=== PATIENT | male | born 2000 | race Caucasian/White ===

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

== ENCOUNTER 2021-10-04 21:35 | Emergency (ER) | payer MEDICAID, OTHER ==
[2021-10-04 21:55] VITALS: BP 111/72
--- NOTE | 2021-10-04 22:06 | ED Lower Extremity ---
General Chief Complaint: Laceration Stated Complaint: RIGHT KNEE CUT Nursing Triage Note: PT PRESENTS WITH LACERATION TO RIGHT KNEE. REPORTS AROUND 1830 HAVING A TARE MAN CUT HIS KNEE WHILE USING IT. AREA IS CLEAN AND DRY WITH MINIMAL BLEEDING AT THIS TIME. PT DENIES ANY PAIN Source: patient Exam Limitations: no limitations History of Present Illness Date Seen by Provider: Oct 04, 2021 Time Seen by Provider: 22:04 Initial Comments Patient is a 21-year-old male who presents ED with a laceration to the right lateral knee. This occurred around 6:00 at work. Patient Was using a horseradish grinder when the horseradish grinder slipped resulting in a laceration on the right lateral knee. Patient continue to work. Bleeding with flexion of the knee. Does have appropriate range of motion the right knee. Not up-to-date on his tetanus. Allergies and Home Medications Allergies Coded Allergies: No Known Drug Allergies (Unverified , 03/17/18) Patient Home Medication List Home Medication List Reviewed: Yes Cephalexin (Cephalexin) 500 Mg Tablet, 500 MG PO QID Prescribed by: YAQUELIN MORTON on 10/04/21 5840 Prednisolone Acetate/Pf (Prednisolone Acet 1% Eye Drop) 5 Ml Drops.susp, 2 DROPS OP Q4H Prescribed by: JENNI ROBINS on 03/18/18 0029 Tropicamide (Tropicamide) 15 Ml Drops, 2 DROPS OP Q6H Prescribed by: JENNI ROBINS on 03/18/18 0029 Review of Systems Constitutional: No chills, No diaphoresis, No malaise, No weakness EENTM: No hearing loss, No ear pain, No blurred vision, No double vision Cardiovascular: No chest pain Gastrointestinal: No abdominal pain, No diarrhea, No nausea, No vomiting Genitourinary: No decreased output, No discharge Musculoskeletal: No back pain, No joint pain, No muscle pain Skin: change in color, other (Right lateral knee laceration) All Other Systems Reviewed Negative Unless Noted: Yes Past Ttodadm-Ardulc-Xzdqha Hx Patient Social History Tobacco Use?: No Substance use?: No Alcohol Use?: Yes Alcohol Frequency: Once in a while Pt feels they are or have been: No Immunizations Up To Date Tetanus Booster (TDap): Less than 5yrs PED Vaccines UTD: Yes Influenza Vaccine Up-to-Date: No; Not Current Seasonal Allergies Seasonal Allergies: No Past Medical History Surgeries: No Respiratory: No Cardiac: No Neurological: No Genitourinary: No Gastrointestinal: No Musculoskeletal: No Endocrine: No HEENT: No Cancer: No Psychosocial: No Integumentary: No Blood Disorders: No Physical Exam Vital Signs Vital Signs - First Documented 10/04/21 21:55 Pulse 67 Resp 18 B/P (MAP) 111/72 (85) Pulse Ox 100 Capillary Refill : Height, Weight, BMI Height: 5'9.00" Weight: 135lbs. oz. 61.912299bj; 19.00 BMI Method:Stated General Appearance: WD/WN, no apparent distress HEENT: PERRL/EOMI, normal ENT inspection, TMs normal, pharynx normal Neck: non-tender, full range of motion, supple Cardiovascular: regular rate, rhythm, no edema, no gallop, no JVD Respiratory: chest non-tender, lungs clear, normal breath sounds, no respiratory distress, no accessory muscle use Gastrointestinal: normal bowel sounds, non tender, soft, no organomegaly, no pulsatile mass Back: normal inspection Knees: right knee soft tissue tenderness (2 cm laceration to right lateral knee) Ankles: bilateral ankle non-tender, bilateral ankle normal inspection, bilateral ankle normal range of motion Feet: bilateral foot non-tender, bilateral foot normal inspection, bilateral foot normal range of motion, bilateral foot no evidence of injury 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 Mild adipose involvement.) Procedures/Interventions Wound Location: Lower Extremities Other Wound Location right leg Wound Length (cm): 2 Wound's Depth, Shape: into muscle, sub Q Wound Explored: contaminated Irrigated w/ Saline (ccs): 300 Betadine Prep?: Yes Anesthesia: 1% Lidocaine Volume Anesthetic (ccs): 5 Suture: Ethlion Suture Size: 4-0 Number of Sutures: 6 Layer Closure?: 1 Sterile Dressing Applied?: Yes Progress/Results/Core Measures Results/Orders My Orders Orders - MARIA LUISA SALGADO Dipht,Pertuss(Acell),Tet Adult (Boostrix (10/04/21 22:15) Vital Signs/I&O 10/04/21 21:55 Pulse 67 Resp 18 B/P (MAP) 111/72 (85) Pulse Ox 100 Blood Pressure Mean: 85 Departure Communication (PCP) Patient was using a horseradish grinder at work when it slipped causing a laceration to the right lateral knee. Concerning that patient may have involved about a 1 centimeter area to the vastus lateralis. apears to be were the muscle belly attaches to the tendon. Does have appropriate range of motion of the right knee with extension and flexion. Denies of any loosening or feel like that the right knee wants to give out. No bone involvement. Extensive irrigation here with Shur-Clens. Prepped with iodine. Sterile drape. Six 4-0 Ethilon sutures were placed. Discussed patient with Dr. Liu orthopedic secondary to the muscle injury and he does not feel like sutures is absolutely necessary. He states since this is a small area this will heal without closure. He can follow-up with orthopedic for further evaluation. Remove sutures in 10 to 12 days. Secondary to contamination will discharge with Keflex. Updated his tetanus here. If any worsening symptoms return back to ED. Discussed limiting flexion of the knee to prevent suture rupture and allow healing of the muscle belly. Provided restrictions at work for the next 2-week Impression Primary Impression: Laceration Disposition: 01 HOME, SELF-CARE Condition: Stable Departure-Patient Inst. Decision time for Depature: 22:56 Referrals: ADRIENNE PAIZ MD (PCP) Primary Care Physician KRISTEN LIU MD Patient Instructions: Laceration Repair With Stitches ED Add. Discharge Instructions: Remove stitches in 10 to 12 days. All discharge instructions reviewed with patient and/or family. Voiced understanding. Scripts Cephalexin (Cephalexin) 500 Mg Tablet 500 MG PO QID for 7 Days, #28 TAB Prov: MARIA LUISA SALGADO 10/04/21 Work/School Note: Work Release Form Date Seen in the Emergency Department: Oct 04, 2021 Return to Work: Oct 05, 2021 MARIA LUISA SALGADO Oct 04, 2021 22:06
[2021-10-04] MEDS ORDERED: TETANUS,DIPTH,PERTUSS P/F (BOOSTRIX) 0.5 ML VIAL IM ONE (22:15)
[2021-10-04] MEDS ORDERED: CEPH500T PO (22:57)
== END 2021-10-04 23:01 | disposition home or self-care (01) ==
LOC: EDUNIT# 21:35 → ER 21:38
DX: S81.011A Laceration without foreign body, right knee, initial encounter (principal); Z28.310 Unvaccinated for COVID-19; W31.89XA Contact with other specified machinery, initial encounter; Y92.59 Other trade areas as the place of occurrence of the external cause; Y99.0 Civilian activity done for income or pay
CPT/HCPCS: 99282

== ENCOUNTER 2021-10-17 13:08 | Emergency (ER) | payer OTHER, MEDICAID ==
[~2021-10-17] VITALS: Ht 175.2 cm; Wt 61.2 kg
[~2021-10-17 13:08] MED LIST changes: +CEPH500T PO
[2021-10-17 13:58] VITALS: BP 106/69
--- NOTE | 2021-10-17 14:00 | ED Suture Removal/Wound Check ---
Suture/Wound Re-check Suture Removal/Wound Recheck : Suture Removal/Wound Recheck: Sutures removed by RN Cheryl Patient is a 21-year-old male who presents ED with recheck of his laceration repair performed on October 04. He has no current complaints besides some swelling around the laceration.. He denies any redness or warmth. Was placed on Keflex prophylactically. Reports normal range of motion of the right knee. He states the swelling has improved. Denies fever, chills, nausea, vomiting, diarrhea. General Appearance: WD/WN, no apparent distress Neuro/Tendon: normal sensation, normal motor functions, normal tendon functions Skin Exam: other (swelling overlying the laceration repair) Physical Exam Vital Signs Vital Signs - First Documented 10/17/21 13:30 Temp 36.7 Pulse 59 Resp 18 B/P (MAP) 106/69 Pulse Ox 100 Capillary Refill : General Appearance: WD/WN, no apparent distress HEENT: PERRL/EOMI, normal ENT inspection, TMs normal, pharynx normal Neck: non-tender, full range of motion, supple, normal inspection Cardiovascular: regular rate, rhythm, no edema, no gallop, no JVD Respiratory: chest non-tender, lungs clear, normal breath sounds, no respiratory distress, no accessory muscle use Gastrointestinal: normal bowel sounds, non tender, soft, no organomegaly Extremities: normal range of motion (Right knee.), non-tender (Right knee), other (Laceration. Right lateral knee. 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 It was initially concern for possible tendon involvement with his laceration when he was seen here. He has not followed up with orthopedic. He has no pain with walking. He states swelling has improved. Due to the location and possible stress it puts on the laceration repair I was able to drain 20ml of clear fluid. Used 1% lidocaine to anesthetize locally and used a 18-gauge needle to remove 20 mls. Fluid appeared slightly yellowish. patient had no pain on palpation. No purulent drainage or bloody drainage from the site. This was not in the knee joint. This was superficial. Recommend continue follow-up with orthopedic. Ice and David wrap for support. Discussed limited running or activities until laceration repair is completely repaired. No active drainage at this time. Recommend rest for the next week. If any worsening symptoms such as redness, swelling to return back to ED. Impression Primary Impression: Seroma Disposition: 01 HOME, SELF-CARE Condition: Stable Departure-Patient Inst. Decision time for Depature: 13:59 Referrals: KRISTEN LIU MD Patient Instructions: Stitches Removal MARIA LUISA SALGADO Oct 17, 2021 13:59
[2021-10-17 14:35] LABS: BODY FLUID RBC COUNT 0.004 10^6/uL; BODY FLUID WBC TOTAL COUNT 0.377 10^3/uL
[2021-10-17 14:56] LABS: GLUCOSE,BODY FLUID 78 MG/DL; TOTAL PROTEIN,BODY FLUID 3.6 G/DL
[2021-10-17 15:16] LABS: BODY FLUID SOURCE SYNOVIAL
[2021-10-17 15:17] LABS: BODY FLUID APPEARENCE SLT CLDY; BODY FLUID COLOR YELLOW
== END 2021-10-17 13:59 | disposition home or self-care (01) ==
LOC: EDUNIT# 13:08 → ER 13:11
DX: L76.34 Postprocedural seroma of skin and subcutaneous tissue following other procedure (principal); Z28.310 Unvaccinated for COVID-19
CPT/HCPCS: 82945; 84157; 87070; 87205; 89051